=== PATIENT | male | born 1990 | race Two or more races ===

== ENCOUNTER 2025-05-14 02:48 | Emergency (ER) | payer SELFPAY ==
[2025-05-14 02:52] VITALS: PULSE 92; RESP 18; O2SAT 97; BMI 26.4
[2025-05-14 02:57] VITALS: BP 144/77; PULSE 94; RESP 18; TEMP 36.7; O2SAT 97
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
--- NOTE | 2025-05-14 03:11 | PC.NURSE ---
[facility] AT BEDSIDE
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
[2025-05-14 04:53] VITALS: BP 113/69; PULSE 89; RESP 18; TEMP 36.7; O2SAT 97
[2025-05-14] MEDS: ACETAMINOPHEN 500 MG TABLET 1000 MG PO (05:10)
[2025-05-14] MEDS: DIPHTH,PERTUSS(ACELL),TET VAC 0.5 ML SYR- ADULT IMi (05:11)
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
== END 2025-05-14 06:26 | disposition home or self-care (01) ==
LOC: SERX 05:36
PROVIDERS: Emergency Provider Emergency Medicine
DX: S06.0X1A Concussion with loss of consciousness of 30 minutes or less, initial encounter (principal); S02.2XXA Fracture of nasal bones, initial encounter for closed fracture; Y09 Assault by unspecified means; F10.129 Alcohol abuse with intoxication, unspecified; Y90.9 Presence of alcohol in blood, level not specified
CPT/HCPCS: 70450; 90471; 90715; 99283; A9270